=== PATIENT | female | born 1990 | race American Indian/Alaskan Native ===

== ENCOUNTER 2022-05-10 14:06 | Inpatient (IN) | payer OTHER, MEDICAID ==
[2022-05-10] MEDS ORDERED: LACTATED RINGERS 2,000 ML ONE (17:55)
[2022-05-10 19:00] LABS: Hematocrit 39.7 % (30.3-42.9); Hemoglobin 13.2 gm/dl (10.1-14.3); Mean Corpuscular HGB Conc 33 % (30-34); Mean Corpuscular Volume 88 fl (79-97); Platelet Count 220 K/mm3 (140-440)
[2022-05-10] MEDS ORDERED: TERBUTALINE 1 MG/1 ML INJ SUB-Q PRN (19:21)
[2022-05-10] MEDS ORDERED: LOPERAMIDE 2 MG CAP PO PRN (19:21)
[2022-05-10] MEDS ORDERED: OXYTOCIN 10 UNIT/1 ML INJ IM PRN (19:21)
[2022-05-10] MEDS ORDERED: MINERAL OIL 30 ML ORAL LIQD PO PRN (19:21)
[2022-05-10] MEDS ORDERED: BUTORPHANOL 2 MG/1 ML INJ IV PRN (19:21)
[2022-05-10] MEDS ORDERED: miSOPROStol 200 MCG TAB PR PRN (19:21)
[2022-05-10] MEDS ORDERED: CARBOPROST TROMETHAMINE 250 MCG/1 ML INJ IM PRN (19:21)
[2022-05-10] MEDS ORDERED: ONDANSETRON 4 MG/2 ML INJ IV PRN (19:21)
[2022-05-10] MEDS ORDERED: ACETAMINOPHEN 325 MG TAB PO PRN (19:21)
[2022-05-10] MEDS ORDERED: METHYLERGONOVINE MALEATE 0.2 MG/ML VIAL IM PRN (19:21)
[2022-05-10] MEDS ORDERED: DINOPROSTONE 10 MG VAG SUPP VG ONE (19:21)
[2022-05-10] MEDS ORDERED: fentaNYL 100 MCG/2 ML INJ IV PRN (19:21)
[2022-05-10] MEDS ORDERED: LIDOCAINE (2%) 20 MG/1 ML VIAL 20 ML MDV INFILTRATI ONE (19:21)
[2022-05-10] MEDS ORDERED: ePHEDrine SULFATE 50 MG/1 ML INJ IV PRN ×2 (19:21→23:30)
[2022-05-10] MEDS ORDERED: OXYTOCIN DRIP 30 UNITS/500 ML BAG IV SCH ×2 (20:00)
[2022-05-10 20:59] LABS: Hematocrit 36.6 % (30.3-42.9)
[2022-05-10] MEDS: LACTATED RINGERS 1,000 ML IV SCH ×2 (22:11→23:31)
--- NOTE | 2022-05-10 23:28 | Anesthesia Consultation ---
Anesthesia Consult and Med Hx Date of service: 05/10/22 - Airway Anesthetic Teeth Evaluation: Good ROM Head & Neck: Adequate Mental/Hyoid Distance: Adequate Mallampati Class: Class II Intubation Access Assessment: Probably Good - Pulmonary Exam CTA: Yes - Cardiac Exam Cardiac Exam: RRR - Pre-Operative Health Status ASA Pre-Surgery Classification: ASA2 Proposed Anesthetic Plan: Epidural - Pulmonary Hx Smoking: No Hx Asthma: No COPD: No Hx Pneumonia: No Hx Sleep Apnea: No - Cardiovascular System Hx Hypertension: No - Central Nervous System Hx Seizures: No CVA: No Hx Psychiatric Problems: No - Endocrine Hx Renal Disease: No Hx End Stage Renal Disease: No Hx Liver Disease: No Hx Non-Insulin Dependent Diabetes: No Hx Hypothyroidism: No Hx Hyperthyroidism: No - Hematic Hx Anemia: No Hx Sickle Cell Disease: No - Other Systems Hx Alcohol Use: No Hx Substance Use: No Hx Cancer: No Hx Obesity: No - Additional Comments Anesthesia Medical History Comments: no hx of anesthetic complications
[2022-05-10] MEDS ORDERED: NALOXONE 0.4 MG/1 ML INJ IV PRN (23:30)
--- NOTE | 2022-05-10 23:30 | Progress Note ---
Labor Epidural - Labor Epidural Start Time: 23:09 Stop Time: 23:12 Performed by:: LONNIE CORRALES Procedure: Patient is requesting epidural for labor and pain. H&P, labs were reviewed. Patient IDed, all questions and concerns were answered, and consent was signed. Timeout was performed at bedside. Patient in sitting position. Sterile prep and drape was performed. 3ml of 1% lidocaine skin wheal at L[3]- L [4]. 17- gauge Tuohy epidural needle was advanced to loss of resistance with air technique 5 cm. Negative CSF negative blood. Epidural catheter advanced to [12] centimeters. [negative] Aspiration [negative] test dose. Sterile dressing applied. Patient tolerated procedure.
[2022-05-10] MEDS ORDERED: fentaNYL-BUPIV 2 MCG/ML-0.125% 200 MCG/100 ML BAG EPIDURAL SCH (23:45)
[2022-05-11] MEDS: LACTATED RINGERS 1,000 ML IV SCH (00:31)
[2022-05-11] MEDS ORDERED: AMPICILLIN/NS 2 GM/100 ML 2 GM/100 ML BAG IV ONE ×2 (02:23→04:20)
--- NOTE | 2022-05-11 02:28 | History and Physical Report ---
History of Present Illness Date of examination: 05/11/22 Date of admission: 05/10/22 19:21 Chief complaint: IOL History of present illness: 31y/o @ 38+1 presents for induction of labor secondary to gestational hypertension. The patient course is complicated by hydrocephaly, uterine fibroid and maternal hydronephrosis. Past History - Obstetrical History : 2 Medications and Allergies Allergies Allergy/AdvReac Type Severity Reaction Status Date / Time No Known Allergies Allergy Unverified 05/10/22 17:45 Active Meds: Active Medications Acetaminophen (Acetaminophen 325 Mg Tab) 650 mg PO Q4H PRN PRN Reason: Pain, Mild (1-3) Butorphanol Tartrate (Butorphanol 2 Mg/1 Ml Inj) 1 mg IV Q2H PRN PRN Reason: Pain, Moderate(4-6) LABOR PAIN Carboprost Tromethamine (Carboprost Tromethamine 250 Mcg/1 Ml Inj) 250 mcg IM ONCE PRN PRN Reason: Uterine Bleeding Ephedrine Sulfate (Ephedrine Sulfate 50 Mg/1 Ml Inj) 10 mg IV Q2M PRN PRN Reason: Hypotension Fentanyl (Fentanyl 100 Mcg/2 Ml Inj) 100 mcg IV Q2H PRN PRN Reason: Pain,Severe (7-10) LABOR PAIN Oxytocin/Sodium Chloride (Pitocin/Ns 30 Unit/500ml) 30 units in 500 mls @ 2 mls/hr IV TITR TOOTIE; Protocol Lactated Ringer's (Lactated Ringers) 1,000 mls @ 125 mls/hr IV DIRECT TOOTIE Last Admin: 05/11/22 00:31 Dose: 325 mls/hr Oxytocin/Sodium Chloride (Pitocin/Ns 30 Unit/500ml) 30 units in 500 mls @ 40 mls/hr IV TITR TOOTIE; Protocol Fentanyl/Bupivacaine/Sodium Chlor (Fentanyl-Bupiv 2 Mcg/Ml-0.125%) 200 mcg in 100 mls @ 12 mls/hr EPIDURAL TITR TOOTIE; Protocol Last Admin: 05/11/22 00:04 Dose: 12 mls/hr Loperamide HCl (Loperamide 2 Mg Cap) 2 mg PO ONCE PRN PRN Reason: give with Hemabate Methylergonovine Maleate (Methylergonovine Maleate 0.2 Mg/Ml Vial) 0.2 mg IM ONCE PRN PRN Reason: Uterine Bleeding Mineral Oil (Mineral Oil 30 Ml Oral Liqd) 30 ml PO QHS PRN PRN Reason: Constipation Misoprostol (Misoprostol 200 Mcg Tab) [address] ONCE PRN PRN Reason: Uterine Bleeding Naloxone HCl (Naloxone 0.4 Mg/1 Ml Inj) 0.2 mg IV Q5MIN PRN PRN Reason: Respiratory sedation Ondansetron HCl (Ondansetron 4 Mg/2 Ml Inj) 4 mg IV Q8H PRN PRN Reason: Nausea And Vomiting Oxytocin (Oxytocin 10 Unit/1 Ml Inj) 10 unit IM ONCE PRN PRN Reason: Uterine Bleeding Terbutaline Sulfate (Terbutaline 1 Mg/1 Ml Inj) 0.25 mg SUB-Q ONCE PRN PRN Reason: Hyperstimulation/Hypertonicity - Vital Signs Vital signs: Vital Signs Pulse BP Pulse Ox 77 133/98 100 05/10/22 16:00 05/10/22 16:00 05/10/22 16:00 Temp Pulse Resp BP Pulse Ox 98.1 F 57 L 17 113/68 100 05/10/22 19:43 05/11/22 02:25 05/10/22 19:43 05/11/22 02:17 05/11/22 02:25 Results Result Diagrams: 05/10/22 20:44 All other labs normal.
[2022-05-11] MEDS ORDERED: LANOLIN/ZINC/DIMETHICONE (LANSINOH) 7 GM TP PRN (02:54)
[2022-05-11] MEDS ORDERED: PROMETHAZINE 25 MG TAB PO PRN (02:54)
[2022-05-11] MEDS ORDERED: WITCH HAZEL/ GLYCERIN PAD TP PRN (02:54)
[2022-05-11] MEDS ORDERED: MAGNESIUM HYDROXIDE (MOM) ORAL LIQD UDC PO PRN (02:54)
[2022-05-11] MEDS ORDERED: PROMETHAZINE 25 MG RECT SUPP PR PRN (02:54)
[2022-05-11] MEDS ORDERED: diphenhydrAMINE 25 MG CAP PO PRN (02:54)
[2022-05-11] MEDS ORDERED: ONDANSETRON 4 MG/2 ML INJ IV PRN (02:54)
--- NOTE | 2022-05-11 02:54 | Procedure Note ---
OB Delivery Note - Delivery Date of Delivery: 05/11/22 Surgeon: ALECIA PARSON Estimated blood loss: <100cc - Vaginal Delivery presentation: vertex Delivery position: OA Intrapartum events: extend. bradycardia Delivery induction: AROM Delivery monitor: external FHT, external uterine Route of delivery: Delivery placenta: spontaneous Delivery cord: 3 umbilical vessels Episiotomy: none Delivery laceration: none Anesthesia: epidural Delivery comments: Patient progressed to complete complete +2 station after amniotomy was performed with clear fluid. Patient's intrapartum course is complicated by episodes of bradycardia. The patient exhibits good maternal effort and post to deliver a liveborn male infant with Apgars of 8 and 9 weight 6 pounds 1 ounce. After delivery of the head the shoulders delivered without difficulty. The cord was clamped and cut x2 and the was placed on the warmer for evaluation. The placenta delivered spontaneously intact with a three-vessel cord. No lacerations were noted. Estimated blood loss less than 100 mL - Infant A at 1 minute: 8 at 5 minutes: 9 Infant Gender: Male (Weight 6 pounds 1 ounce)
[2022-05-11] MEDS ORDERED: ACETAMINOPHEN 325 MG TAB PO PRN (02:55)
[2022-05-11] MEDS ORDERED: HYDROcodone/ACETAMINOPHEN 5-325 MG TAB PO PRN (02:55)
[2022-05-11] MEDS: IBUPROFEN 800 MG TAB PO SCH ×2 (06:13→20:23)
[2022-05-11 13:55] LABS: Hematocrit 34.9 % (30.3-42.9); Hemoglobin 11.7 gm/dl (10.1-14.3)
[2022-05-11] MEDS ORDERED: TETANUS,DIPH,PERTUSS(ACELL) VACCINE 0.5 ML SYRINGE IM ONE (20:08)
[2022-05-12] MEDS: IBUPROFEN 800 MG TAB PO SCH ×3 (03:09→20:30)
--- NOTE | 2022-05-12 08:44 | Discharge Summary ---
Providers - Providers Date of Admission: 05/10/22 19:21 Date of discharge: 05/13/22 Attending physician: ALECIA PARSON Primary care physician: ALECIA PARSON Hospitalization Reason for admission: induction of labor Delivery: Episiotomy: none Laceration: none Other procedures: none complications: none Discharge diagnosis: IUP at term delivered baby: male Hospital course: 31y/o @ 38+1 presents for induction of labor secondary to gestational hypertension. The patient course is complicated by hydrocephaly, uterine fibroid and maternal hydronephrosis. Delivered viable male infant. Doing well, wishes to go home if baby is cleared for d/c. Condition at discharge: Good Disposition: 01 HOME / SELF CARE / HOMELESS - Discharge Diagnoses (1) Status post normal vaginal delivery Status: Acute Plan - Discharge Medications Prescriptions: Ibuprofen [Motrin 800 MG tab] 800 mg PO Q8HR #30 tablet - Provider Discharge Summary Activity: routine, no sex for 6 weeks, no heavy lifting 4 weeks, no strenuous exercise Diet: routine Instructions: routine Additional instructions: [] Smoking cessation referral if applicable(refer to patient education folder for contact #) [] Refer to [facility]'s [facility] Booklet Call your doctor immediately for: * Fever > 100.5 * Heavy vaginal bleeding ( >1 pad per hour) * Severe persistent headache * Shortness of breath * Reddened, hot, painful area to leg or breast - Follow up plan Follow up: ALECIA PARSON MD [Primary Care Provider] - 6 Weeks
[2022-05-12 16:30] VITALS: BP 118/86
== END 2022-05-12 21:00 | disposition home or self-care (01) | DRG 807 ==
LOC: TRG 14:06 → APU 14:10 → LD 19:21 → TRG 19:21 → OB 05-11 05:17
PROVIDERS: ADMIT Obstetrics & Gynecology; ATTEND Obstetrics & Gynecology
PROC: 10E0XZZ Delivery of Products of Conception, External Approach (ICD-10-PCS; principal; 2022-05-11)
PROC: 10907ZC Drainage of Amniotic Fluid, Therapeutic from Products of Conception, Via Natural or Artificial Opening (ICD-10-PCS; 2022-05-11)
PROC: 3E0R3BZ Introduction of Anesthetic Agent into Spinal Canal, Percutaneous Approach (ICD-10-PCS; 2022-05-11)
PROC: 00HU33Z Insertion of Infusion Device into Spinal Canal, Percutaneous Approach (ICD-10-PCS; 2022-05-11)
PROC: 3E0234Z Introduction of Serum, Toxoid and Vaccine into Muscle, Percutaneous Approach (ICD-10-PCS; 2022-05-11)
DX: O76 Abnormality in fetal heart rate and rhythm complicating labor and delivery (principal); Z37.0 Single live birth; O13.4 Gestational [pregnancy-induced] hypertension without significant proteinuria, complicating childbirth; Z3A.38 38 weeks gestation of pregnancy; Z20.822 Contact with and (suspected) exposure to COVID-19; Z23 Encounter for immunization
CPT/HCPCS: 36415; 59200; 85014; 85018; 85027; 86592; 86850; 86900; 86901; 88307; 90471; 90715; G0378; J3490; J0290; J2590; J7120; U0003